=== PATIENT | female | born 2000 | race Caucasian/White ===

== ENCOUNTER 2024-01-23 15:41 | Emergency (ER) | payer OTHER, SELFPAY ==
[2024-01-23 15:49] VITALS: BP 120/73
[2024-01-23 16:17] LABS: % Basophils 0.2 % (0-2); % Eosinophils 0.2 % (0-6); % Immature Granulocytes 0.3 % (0-0.5); % Lymphocytes 16.6 % (20.5-51.1); % Monocytes 6.4 % (1.7-9.3); % Neutrophils 76.3 % (42.2-75.2); Absolute Lymphocytes 2.1 10^3/uL (1.2-3.4); Absolute Monocytes 0.8 10^3/uL (0.1-0.6); Absolute Neutrophils 9.8 10^3/uL (1.4-6.5); Hematocrit 34.9 % (37.0-47.0); Hemoglobin 12.4 g/dL (12.0-16.0); Mean Corp Hgb Conc. 35.5 g/dL (33.0-37.0); Mean Corpuscular Hgb 30.2 pg (27.0-31.0); Mean Corpuscular Volume 84.9 fL (81.0-99.0); Nucleated Red Blood Cells % 0 %; Platelet Count 171 10^3/uL (130-400); Red Blood Cell Count 4.11 10^6/uL (4.20-5.40); Red Cell Dist. Width 11.6 % (11.5-14.5); White Blood Cell Count 12.9 10^3/uL (4.8-10.8)
[2024-01-23 16:33] LABS: ALT (SGPT) 19 U/L (0-35); AST (SGOT) 24 U/L (14-36); Albumin 4.3 g/dl (3.5-5.0); Alkaline Phosphatase 34 U/L (38-126); Blood Urea Nitrogen 12 mg/dl (7-17); Calcium 9.3 mg/dl (8.4-10.2); Carbon Dioxide 21 mmol/L (22-30); Chloride 103 mmol/L (98-107); Glucose 87 mg/dl (70-99); Lipase 58 U/L (23-300); Sodium 132 mmol/L (135-145); Total Bilirubin 0.6 mg/dl (0.2-1.3); Total Protein 6.8 g/dl (6.3-8.2); eGFR > 60.00
--- NOTE | 2024-01-23 17:52 | ED.GENMED ---
History of Present Illness
General
Chief Complaint: Abdominal Pain
Source: patient
Exam Limitations: none
Time Seen by Provider: 01/23/24 17:13
Nursing documentation reviewed up to this point in time: agreed with
Travel History
Have you had any contact with someone who has COVID-19?: No
Do you have any symptoms of coronavirus? Fever > 100 degrees, chills, cough, shortness of breath, sore throat, loss of taste or smell, muscle aches, or headache?: No
History of Present Illness
History of Present Illness:
Patient is a 23-year-old female with a last menstrual period of November 30 who presents to the ER for evaluation. She reports she is approximately 8 weeks by dates and took self test at home. She has a first appoint with a new
MANAGER SERVICES on Friday. She has a history of chronic gastroparesis normally and has had vomiting with this however the past 1 week she has had increased vomiting. She is vomiting at least 70 times a day and is now vomiting water. She denies
any abdominal pain but does complain of low back pain/abd pain. She denies any vaginal bleeding.
Patient denies any frequency urgency dysuria denies any fever or chills.
Past History
Past History
ED Past Medical History: None
ED Past Surgical History: Other ([place] teeth)
Social History
Drug: None
Personal: Single
Living: with family
Phy Exam
General Physical Exam
General Presentation: no apparent distress
General age: appears stated age
General Skin: warm and dry
General Habitus: normal
General Mental: alert
General Hydration: appears well hydrated
Gastrointestinal Exam
Gastrointestinal Exam: non tender and soft
Neurological Exam
Neurological Exam: alert and oriented x3
Musculoskeletal Exam
Musculoskeletal Exam: full ROM
Skin Exam
Skin Exam: normal color and warm/dry
Psychiatric Exam
Psychiatric Exam: normal mood/affect
Course
Orders/Labs/Results
Orders:
Orders
01/23/24 16:01
Complete Blood Count/With Diff Urgent
Comprehensive Metabolic Panel Urgent
HCG,SERUM [Beta HCG Quantitative] Urgent
Is this a screen?: No
Lipase Urgent
01/23/24 17:22
0.9% Sodium Chloride 1000 ml [Nss] 1,000 ml IV BOLUS
01/23/24 17:57
Ondansetron Injectable [Zofran] 4 mg IV NOW STA
01/23/24 17:58
US 1st Trimester Urgent
Comment:
Reason For Exam: lower abd pain
01/23/24 18:05
UA Reflex to Culture [Urinalysis Reflex To Culture] Urgent
Date Specimen was Collected: 01/23/24
Time Specimen was Collected: 17:59
Urine Microscopic Reflex Cult Urgent
Urine Culture Urgent
LUANN Source: U
Specimen Description:
Date Specimen was Collected: 01/23/24
Time Specimen was Collected: 17:59
01/23/24 20:32
Cephalexin Monohydrate [Keflex] 250 mg PO NOW STA
01/23/24 20:37
Vital Signs- Treatment ONCE
Frequency: Once
Abnormal Lab Results
01/23/24 01/23/24
16:01 18:05
WBC 12.9 H 10^3/uL
(4.8-10.8)
RBC 4.11 L 10^6/uL
(4.20-5.40)
Hct 34.9 L %
(37.0-47.0)
MPV 13.0 H fL
(7.4-10.4)
Absolute Neuts (auto) 9.8 H 10^3/uL
(1.4-6.5)
Absolute Monos (auto) 0.8 H 10^3/uL
(0.1-0.6)
Neutrophils % 76.3 H %
(42.2-75.2)
Lymphocytes % 16.6 L %
(20.5-51.1)
Sodium 132 L mmol/L
(135-145)
Carbon Dioxide 21 L mmol/L
(22-30)
Creatinine 0.4 L mg/dL
(0.6-1.0)
Alkaline Phosphatase 34 L U/L
(38-126)
Urine Ketones Trace A
(Negative)
Ur Occult Blood Reflex Trace A
(Negative)
Leukocyte Esterase Rfl 2+ A
(Negative)
Urine WBC (Reflex) 30-40 A /HPF
(0-5)
Urine Bacteria (Reflex) Many A
(Negative)
01/23/24 16:01
01/23/24 16:01
Vital Signs
Initial and Last Documented VS:
Initial Vital Signs
Temp Pulse Resp BP Pulse Ox
98.4 F 93 20 120/73 99
01/23/24 15:49 01/23/24 15:49 01/23/24 15:49 01/23/24 15:49 01/23/24 15:49
Last Documented Vital Signs
Temp Pulse Resp BP Pulse Ox
98.4 F 93 20 120/73 99
01/23/24 15:49 01/23/24 15:49 01/23/24 15:49 01/23/24 15:49 01/23/24 15:49
Mini Lab Operator consulted with Physician
Name of Physician Consulted: robert
MDM/Problems Addressed
Differential Diagnosis Includes:
Not limited to hyperemesis gravidarum, dehydration, less likely , ectopic
MDM/Problems Addressed:
Patient is a 23-year-old female who reports she was approximately 8 weeks based on last menstrual period took a test and is scheduled to see NEWSPAPER MANAGER next week presents for nausea and vomiting. She has had nausea and vomiting since
but worse over the past week. She has not been able to keep anything down including water. She complained of mild low back pain and initially in triage complain of mild abdominal lower cramping but denied any vaginal bleeding. She
presents awake alert no acute distress. She denies any fevers and is afebrile white count minimally elevated this likely may be from . Patient though denies any UTI symptoms was found to have UTI with 30-40 white blood cells in urine 6�10
squamous +2 leuks. Patient received fluids here as well as nausea feeling much better drinking apple juice. Will treat with Keflex 250 mg every 6 hours for 7 days for UTI with close outpatient follow-up with test inspection engineer next week. Ultrasound
does show a single intrauterine measuring 7 weeks and 5 days heart rate 163 2 focal regions of subchorionic hemorrhage .
will also DC on Diclegis
*Critical Care Note
Total Time (30-74mins, 75-104mins- exclusive of procedures): Not Applicable
ED Attending Note
-
Portions of this chart may have been created with voice recognition software.� Occasional wrong word or��sound alike� substitutions may have occurred due to the inherent limitations of voice recognition software.
Discharge Plan
Departure
Patient Disposition: Home (Routine Discharge)
Date of Disposition: 01/23/24
Time of Disposition: 20:37
Patient with high blood pressure during this ER visit?: No
Condition: Fair
Covid-19: Not Applicable
Discharge Problem:
Nausea and vomiting during , UTI (urinary tract infection)
Instructions: Urinary Tract Infection, Adult (DC), Hyperemesis Gravidarum (DC)
Prescriptions:
New
cephalexin 250 mg capsule
250 mg PO Q6H Qty: 28 0RF
doxylamine-pyridoxine (vit B6) [Diclegis] 10-10 mg tablet,delayed release (DR/EC)
1 tab PO DAILY Qty: 10 0RF
Rx Instructions:
one tablet at night
No Action
amoxicillin 875 MG tablet
875 mg PO BID Qty: 14 0RF
ofloxacin 5 ML drops
5 ml LEFT EAR DAILY 7 Days Qty: 35 0RF
Referrals:
Robles Rizo MD [Family Provider] -
Activity Restrictions/Additional Instructions:
As discussed stay well-hydrated.
a prescription for Diclegis for nausea was sent to your pharmacy take as directed..
As discussed you do have a urinary tract infection. You were given the first dose of antibiotics here in the ER. A prescription was sent to your pharmacy take as directed for the next 7 days. Follow-up closely with your test inspection engineer on Friday.
Return if any worsening of symptoms including continued vomiting, if you are unable to tolerate oral fluids, abdominal pain vaginal bleeding or any further concerns.
Interventions
Interventions:
*Risk Screen - Suicide Last Done: 01/23/24 17:54
*General Assessment Last Done: 01/23/24 17:57
*Neglect/Abuse Screening Last Done: 01/23/24 17:54
ED- Fall Risk Assessment Last Done: 01/23/24 17:54
*ED COVID-19 Vaccine History Last Done: 01/23/24 17:57
KD-Ggsqxr-Qowzmsqplo Assessment Last Done: 01/23/24 17:05
[2024-01-23] MEDS: ZOFRAN 4 MG IV (18:01)
[2024-01-23] MEDS: NSS 1000 IV (18:02)
[2024-01-23 18:14] LABS: Urine Albumin Negative (Neg - Trace); Urine Bilirubin Negative (Negative); Urine Character Very Cloudy (Clear); Urine Color Yellow; Urine Glucose Negative (Negative); Urine Ketone Trace (Negative); Urine Leukocyte 2+ (Negative); Urine Nitrite Negative (Negative); Urine Occult Blood Trace (Negative); Urine Specific Gravity 1.025 (<1.030); Urine Urobilinogen 1+ (Neg - 1+)
[2024-01-23 18:32] LABS: Urine Red Blood Cell 0-2 /HPF (0-2)
[2024-01-23 18:33] LABS: Urine Bacteria Many (Negative); Urine White Cell 30-40 /HPF (0-5)
[2024-01-23 20:53] VITALS: BP 114/54
[2024-01-23] MEDS: KEFLEX 250 MG PO (20:57)
== END 2024-01-23 21:09 | disposition home or self-care (01) ==
LOC: EMR 15:41
PROVIDERS: Nurse Practitioner; EMERGENCY PHYSICIAN Emergency Medicine; FAMILY PHYSICIAN Internal Medicine
DX: O23.41 Unspecified infection of urinary tract in pregnancy, first trimester (principal); O21.9 Vomiting of pregnancy, unspecified; Z3A.01 Less than 8 weeks gestation of pregnancy
CPT/HCPCS: 99284; 96374; 96361; 76801; 80053; 81003; 81015; 83690; 84702; 85025; 87086

== ENCOUNTER 2024-02-28 08:17 | Emergency (ER) | payer OTHER, SELFPAY ==
[2024-02-28 08:25] VITALS: BP 122/78
--- NOTE | 2024-02-28 09:29 | ED.GENMED ---
History of Present Illness
General
Chief Complaint: Abdominal Symptoms
Source: patient
Exam Limitations: none
Time Seen by Provider: 02/28/24 09:18
Travel History
Have you had any contact with someone who has COVID-19?: No
Do you have any symptoms of coronavirus? Fever > 100 degrees, chills, cough, shortness of breath, sore throat, loss of taste or smell, muscle aches, or headache?: No
History of Present Illness
History of Present Illness:
23-year-old female with 2 complaints. Some blood in vomitus this morning and ongoing intermittent pelvic pain over the last week. She has a history of gastroparesis has been evaluated for this. She had a endoscopy done that showed some mild
gastritis and mild esophagitis. She is not currently on medications for this. She vomits on a daily basis and it was improving some prior to her . However the she has noted daily vomiting. She vomited at 2 AM that was not
unexpected or remarkable. When she vomited at 630 she noted a small amount of blood, possibly a dime size. She has had no recurrent vomiting. She has had no bloody or tarry stools. She has no chest pain or shortness of breath. In addition she
has had intermittent pelvic pain over the last week. Comes and goes mild in nature mostly midline. No flank or back pain no fever. No unusual vaginal bleeding. She is G1, P0. She did also have a recent UTI but is finished antibiotics for the
Past History
Past History
ED Past Medical History: Other (Gastroparesis)
ED Past Surgical History: Other ([place] teeth)
Social History
Drug: None
Personal: Single
Living: with family
Review of Systems
Review of Systems
All Other Systems: Not applicable
Constitutional: Denies fever
Respiratory: Reports no symptoms
Cardiac: Reports no symptoms
: Reports no symptoms
Phy Exam
Physical Exam
Physical Exam:
GENERAL: Alert and oriented in no apparent distress
EYE: Orbits normal.
NECK: Supple
ENT: Pharynx without erythema
CARDIAC: Regular rate and rhythm without any obvious murmurs.
LUNGS: Clear breath sounds,normal
ABDOMEN: Soft, no distention. No rebound or guarding no mass or hernia. Mild somewhat nonlocalizing midline pelvic tenderness with minimal extension to the right and left lower quadrant. No hernia or masses
NEUROLOGICAL: Alert and oriented , grossly non-focal
SKIN: Warm and dry, no rash or lesion, no discoloration, skin intact.
MUSCULOSKELETAL: No edema,no deformity.Good color
PSYCH: Normal and appropriate interaction.
Course
Orders/Labs/Results
Orders:
Orders
02/28/24 09:28
IV Insert/Care/Rem.- Treatment PRN
0.9% Sodium Chloride 1000 ml [Nss] 1,000 ml IV BOLUS
US Abdomen - Appendix Only Urgent
Comment:
Reason For Exam: Lower abdominal pain/
US 2nd/3rd Trimester Urgent
Comment:
Reason For Exam: Pelvic pain/13 weeks
02/28/24 09:34
Complete Blood Count/With Diff Urgent
Comprehensive Metabolic Panel Urgent
Lipase Urgent
02/28/24 11:20
Urinalysis Reflex To Culture Urgent
Date Specimen was Collected: 02/28/24
Time Specimen was Collected: 11:16
02/28/24 12:17
Famotidine [Pepcid] 20 mg PO NOW STA
Abnormal Lab Results
02/28/24 02/28/24
09:34 11:20
WBC 11.3 H 10^3/uL
(4.8-10.8)
RBC 4.04 L 10^6/uL
(4.20-5.40)
Hct 34.1 L %
(37.0-47.0)
MPV 12.2 H fL
(7.4-10.4)
Abs Immat Gran (auto) 0.1 H 10^3/uL
(0-0.05)
Absolute Neuts (auto) 9.1 H 10^3/uL
(1.4-6.5)
Absolute Monos (auto) 0.7 H 10^3/uL
(0.1-0.6)
Neutrophils % 80.8 H %
(42.2-75.2)
Lymphocytes % 12.0 L %
(20.5-51.1)
Sodium 131 L mmol/L
(135-145)
BUN 6 L mg/dl
(7-17)
Creatinine 0.4 L mg/dL
(0.6-1.0)
Urine Ketones 1+ A
(Negative)
02/28/24 09:34
02/28/24 09:34
Vital Signs
Initial and Last Documented VS:
Initial Vital Signs
Temp Pulse Resp BP Pulse Ox
98.3 F 100 20 122/78 100
02/28/24 08:25 02/28/24 08:25 02/28/24 08:25 02/28/24 08:25 02/28/24 08:25
Last Documented Vital Signs
Temp Pulse Resp BP Pulse Ox
98.3 F 75 16 135/62 96
02/28/24 08:25 02/28/24 11:52 02/28/24 11:52 02/28/24 11:52 02/28/24 11:52
MDM/Problems Addressed
Differential Diagnosis Includes:
Patient has 2 issues that I feel are likely unrelated. Intermittent mild pelvic pain. Likely secondary to the . For reassurance completeness we will do a repeat ultrasound. Doubt an acute surgical issue or appendicitis. However we will
check a white count and an appendix ultrasound. As for the vomiting this has been a recurring issue with a known diagnosis of gastroparesis. With the small amount of blood she may have a mild Emlia-May tear. Doubt significant as she is stable
and has had no recurring episodes. Will check a CBC give fluids and will talk to GI after workup is complete
*Radiology
Radiology exam reviewed: radiology read reviewed ([facility]. No acute findings. Nonvisualized appendix)
*Pulse Oximetry
Patient hypoxic: no
*Critical Care Note
Total Time (30-74mins, 75-104mins- exclusive of procedures): Not Applicable
Data Reviewed
Review of Other/Old Records Reveals: Labs, Records and Testing
Update Note
Update Note:
Patient very stable and nontoxic. No further episodes of vomiting or hematemesis. Discussed with GI. They preferred PPI but after discussion with OB prefer to start with Pepcid. I feel this is reasonable. No findings of acute pelvic issues.
Stable for discharge to follow-up
ED Attending Note
-
Portions of this chart may have been created with voice recognition software.� Occasional wrong word or��sound alike� substitutions may have occurred due to the inherent limitations of voice recognition software.
Discharge Plan
Departure
Patient Disposition: Home (Routine Discharge)
Date of Disposition: 02/28/24
Time of Disposition: 12:18
Patient with high blood pressure during this ER visit?: Yes
Discharge Problem:
Hematemesis/suspected Melia-May tear, , Pelvic pain
Prescriptions:
No Action
amoxicillin 875 MG tablet
875 mg PO BID Qty: 14 0RF
ofloxacin 5 ML drops
5 ml LEFT EAR DAILY 7 Days Qty: 35 0RF
cephalexin 250 mg capsule
250 mg PO Q6H Qty: 28 0RF
doxylamine-pyridoxine (vit B6) [Diclegis] 10-10 mg tablet,delayed release (DR/EC)
1 tab PO DAILY Qty: 10 0RF
Rx Instructions:
one tablet at night
Referrals:
Robles Rizo MD [Family Provider] -
Andreea Borges DO [Active] - Next open appointment
Activity Restrictions/Additional Instructions:
Take a Pepcid per day
Close follow-up with your primary physician and media arts professor. Call them first thing Friday morning for follow-up
Also follow-up with the balancing machine operator
Return sooner with recurrent or worsening vomiting or vomiting any further blood. Also return with chest pain shortness of breath increased abdominal pain fever etc.
Interventions
Interventions:
*Risk Screen - Suicide Last Done: 02/28/24 08:25
*General Assessment Last Done: 02/28/24 08:25
*Neglect/Abuse Screening Last Done: 02/28/24 08:25
ED- Fall Risk Assessment Last Done: 02/28/24 12:25
*ED COVID-19 Vaccine History Last Done: 02/28/24 12:25
*Nursing Disposition Last Done: 02/28/24 12:25
DA-Esljcp-Kysnazytyf Assessment Last Done: 02/28/24 12:25
Discharge Date and Time
Discharge Date/Time: 02/28/24 12:26
Print Language: HUNGARIAN
[2024-02-28 09:31] VITALS: BMI 18.1
[2024-02-28] MEDS: NSS 1000 IV (09:36)
[2024-02-28 09:47] LABS: % Basophils 0.2 % (0-2); % Eosinophils 0.2 % (0-6); % Immature Granulocytes 0.4 % (0-0.5); % Monocytes 6.4 % (1.7-9.3); % Neutrophils 80.8 % (42.2-75.2); Absolute Immature Granulocytes 0.1 10^3/uL (0-0.05); Absolute Lymphocytes 1.4 10^3/uL (1.2-3.4); Absolute Monocytes 0.7 10^3/uL (0.1-0.6); Absolute Neutrophils 9.1 10^3/uL (1.4-6.5); Hematocrit 34.1 % (37.0-47.0); Hemoglobin 12.3 g/dL (12.0-16.0); Mean Corp Hgb Conc. 36.1 g/dL (33.0-37.0); Mean Corpuscular Hgb 30.4 pg (27.0-31.0); Mean Corpuscular Volume 84.4 fL (81.0-99.0); Mean Platelet Volume 12.2 fL (7.4-10.4); Nucleated Red Blood Cells % 0 %; Platelet Count 159 10^3/uL (130-400); Red Blood Cell Count 4.04 10^6/uL (4.20-5.40); Red Cell Dist. Width 11.8 % (11.5-14.5); White Blood Cell Count 11.3 10^3/uL (4.8-10.8)
[2024-02-28 09:57] LABS: ALT (SGPT) 18 U/L (0-35); AST (SGOT) 18 U/L (14-36); Albumin 3.8 g/dl (3.5-5.0); Alkaline Phosphatase 45 U/L (38-126); Blood Urea Nitrogen 6 mg/dl (7-17); Calcium 9.4 mg/dl (8.4-10.2); Carbon Dioxide 24 mmol/L (22-30); Chloride 104 mmol/L (98-107); Estimated Creatinine Clearance 108 ml/min; Glucose 77 mg/dl (70-99); Lipase 39 U/L (23-300); Potassium 3.9 mmol/L (3.5-5.1); Sodium 131 mmol/L (135-145); Total Bilirubin 0.5 mg/dl (0.2-1.3); Total Protein 6.4 g/dl (6.3-8.2); eGFR > 60.00
[2024-02-28 11:37] LABS: Urine Albumin Negative (Neg - Trace); Urine Bilirubin Negative (Negative); Urine Character Clear (Clear); Urine Color Yellow; Urine Glucose Negative (Negative); Urine Ketone 1+ (Negative); Urine Leukocyte Negative (Negative); Urine Nitrite Negative (Negative); Urine Occult Blood Negative (Negative); Urine Urobilinogen Negative (Neg - 1+); Urine pH 6.5 (5.0-9.0)
[2024-02-28 11:52] VITALS: BP 135/62
[2024-02-28] MEDS: PEPCID 20 MG PO (12:23)
== END 2024-02-28 12:26 | disposition home or self-care (01) ==
LOC: EMR 08:17
PROVIDERS: EMERGENCY PHYSICIAN Emergency Medicine; FAMILY PHYSICIAN Internal Medicine
DX: O99.891 Other specified diseases and conditions complicating pregnancy (principal); K92.0 Hematemesis; R10.2 Pelvic and perineal pain
CPT/HCPCS: 99284; 96360; 76705; 76805; 80053; 81003; 83690; 85025

== ENCOUNTER 2024-04-01 20:55 | Emergency (ER) | payer OTHER, SELFPAY ==
[2024-04-01 20:56] VITALS: BP 124/77
[2024-04-01] MEDS: ZOFRAN 4 MG IV (22:08)
[2024-04-01] MEDS: D5/0.9% SODIUM CHLORIDE 1000 IV (22:09)
[2024-04-01 22:17] LABS: % Basophils 0.2 % (0-2); % Eosinophils 0.1 % (0-6); % Immature Granulocytes 0.4 % (0-0.5); % Lymphocytes 9.6 % (20.5-51.1); % Monocytes 3.9 % (1.7-9.3); % Neutrophils 85.8 % (42.2-75.2); Absolute Immature Granulocytes 0.1 10^3/uL (0-0.05); Absolute Lymphocytes 1.2 10^3/uL (1.2-3.4); Absolute Monocytes 0.5 10^3/uL (0.1-0.6); Absolute Neutrophils 11.1 10^3/uL (1.4-6.5); Hematocrit 29.6 % (37.0-47.0); Hemoglobin 11.1 g/dL (12.0-16.0); Mean Corp Hgb Conc. 37.5 g/dL (33.0-37.0); Mean Corpuscular Hgb 30.7 pg (27.0-31.0); Nucleated Red Blood Cells % 0 %; Platelet Count 180 10^3/uL (130-400); Red Blood Cell Count 3.61 10^6/uL (4.20-5.40); Red Cell Dist. Width 11.6 % (11.5-14.5)
[2024-04-01 22:43] LABS: ALT (SGPT) 23 U/L (0-35); AST (SGOT) 22 U/L (14-36); Albumin 3.8 g/dl (3.5-5.0); Alkaline Phosphatase 48 U/L (38-126); Blood Urea Nitrogen 9 mg/dl (7-17); Calcium 9.8 mg/dl (8.4-10.2); Carbon Dioxide 22 mmol/L (22-30); Chloride 104 mmol/L (98-107); Glucose 90 mg/dl (70-99); Potassium 3.8 mmol/L (3.5-5.1); Sodium 134 mmol/L (135-145); Total Bilirubin 0.6 mg/dl (0.2-1.3); Total Protein 6.5 g/dl (6.3-8.2); eGFR > 60.00
[2024-04-01 22:44] LABS: Lipase 50 U/L (23-300)
--- NOTE | 2024-04-01 22:58 | ED.GENMED ---
History of Present Illness
General
Chief Complaint: Abdominal Symptoms
Source: patient and spouse
Exam Limitations: none
Time Seen by Provider: 04/01/24 21:15
Nursing documentation reviewed up to this point in time: agreed with
Travel History
Have you had any contact with someone who has COVID-19?: No
Do you have any symptoms of coronavirus? Fever > 100 degrees, chills, cough, shortness of breath, sore throat, loss of taste or smell, muscle aches, or headache?: No
History of Present Illness
History of Present Illness:
24-year-old female currently G1, P0 also history of gastroparesis presenting to the emergency department today with concerns of nausea and vomiting over the past 2 days has had some persisting vomiting over the past few weeks currently is
17 weeks . Has been taking Unisom at home without relief. Denies any chest pain shortness of breath no vaginal no pelvic pain. No urinary symptoms.
Past History
Past History
ED Past Medical History: Other (Gastroparesis)
ED Past Surgical History: Other ([place] teeth)
Social History
Drug: None
Personal: Single
Living: with family
Review of Systems
Review of Systems
Allergies reviewed?: Yes
All Other Systems: ROS reviewed and negative except as documented in HPI and ROS
Phy Exam
Physical Exam
Physical Exam:
GENERAL: Alert , in no apparent distress
EYE: pupils equal and reactive
NECK: Supple, no significant adenopathy.
ENT: o/p clr, mmm.
CARDIAC: Regular rate and rhythm .
LUNGS: Clear breath sounds bilaterally, no acute respiratory distress, no wheezes/rales/rhonchi
ABDOMEN: Gravid abdomen, heart tones of 162
NEUROLOGICAL: Alert and oriented, no focal neuro deficits
SKIN: Warm and dry, skin intact.
MUSCULOSKELETAL: No edema, well perfused.
PSYCH: Normal and appropriate interaction.
Course
Orders/Labs/Results
Orders:
Orders
04/01/24 21:35
Urinalysis Reflex To Culture Urgent
Date Specimen was Collected: 04/02/24
Time Specimen was Collected: 00:07
Ondansetron Injectable [Zofran] 4 mg IV NOW STA
04/01/24 21:36
Dextrose 5%/0.9%Sodchl 1000 ml [D5/0.9% Sodium Chloride] 1,000 ml IV 1,000 mls/hr
04/01/24 21:45
Heart Tones ONCE
04/01/24 22:12
Complete Blood Count/With Diff Urgent
Comprehensive Metabolic Panel Urgent
Lipase Urgent
04/01/24 23:36
Metoclopramide [Reglan] 10 mg IV NOW STA
04/02/24 00:23
0.9% Sodium Chloride 1000 ml [Nss] 1,000 ml IV BOLUS
Ondansetron Injectable [Zofran] 4 mg IV NOW STA
Abnormal Lab Results
04/01/24 04/02/24
22:12 00:08
WBC 13.0 H 10^3/uL
(4.8-10.8)
RBC 3.61 L 10^6/uL
(4.20-5.40)
Hgb 11.1 L g/dL
(12.0-16.0)
Hct 29.6 L %
(37.0-47.0)
MCHC 37.5 H g/dL
(33.0-37.0)
MPV 12.0 H fL
(7.4-10.4)
Abs Immat Gran (auto) 0.1 H 10^3/uL
(0-0.05)
Absolute Neuts (auto) 11.1 H 10^3/uL
(1.4-6.5)
Neutrophils % 85.8 H %
(42.2-75.2)
Lymphocytes % 9.6 L %
(20.5-51.1)
Sodium 134 L mmol/L
(135-145)
Creatinine 0.4 L mg/dL
(0.6-1.0)
Urine Ketones 3+ A
(Negative)
Urine Glucose 3+ A
(Negative)
04/01/24 22:12
04/01/24 22:12
Vital Signs
Initial and Last Documented VS:
Initial Vital Signs
Temp Pulse BP Pulse Ox
97.9 F 102 124/77 97
04/01/24 20:56 04/01/24 20:56 04/01/24 20:56 04/01/24 20:56
Last Documented Vital Signs
Temp Pulse BP Pulse Ox
97.9 F 102 124/77 97
04/01/24 20:56 04/01/24 20:56 04/01/24 20:56 04/01/24 20:56
MDM/Problems Addressed
MDM/Problems Addressed:
24-year-old female currently 17 weeks with her first with concerns of ongoing nausea and vomiting that has been going on for weeks has been taking Unisom at home without relief. Upon arrival here patient mildly tachycardic at 102
otherwise vital signs are normal. Labs showing slight white count. Patient also mildly anemic. Other labs unremarkable. Patient was given Zofran as well as fluids. Patient had improvement of symptoms requesting to go home stable for discharge
return precautions given.
*Critical Care Note
Total Time (30-74mins, 75-104mins- exclusive of procedures): Not Applicable
ED Attending Note
-
Portions of this chart may have been created with voice recognition software.� Occasional wrong word or��sound alike� substitutions may have occurred due to the inherent limitations of voice recognition software.
Discharge Plan
Departure
Patient Disposition: Home (Routine Discharge)
Date of Disposition: 04/02/24
Time of Disposition: 00:33
Patient with high blood pressure during this ER visit?: No
Condition: Good
Covid-19: Not Applicable
Discharge Problem:
Vomiting during
Instructions: Hyperemesis Gravidarum (DC)
Prescriptions:
No Action
amoxicillin 875 MG tablet
875 mg PO BID Qty: 14 0RF
ofloxacin 5 ML drops
5 ml LEFT EAR DAILY 7 Days Qty: 35 0RF
cephalexin 250 mg capsule
250 mg PO Q6H Qty: 28 0RF
doxylamine-pyridoxine (vit B6) [Diclegis] 10-10 mg tablet,delayed release (DR/EC)
1 tab PO DAILY Qty: 10 0RF
Rx Instructions:
one tablet at night
Referrals:
Robles Rizo MD [Family Provider] -
Activity Restrictions/Additional Instructions:
You came to the emergency department today with concerns of ongoing vomiting. Here you had reassuring labs and some improvement with the medications. Please take the Medications prescribed at home. Return to the emergency department for any
worsening, new or concerning symptoms. otherwise please follow-up closely with your family services worker.
Interventions
Interventions:
*Risk Screen - Suicide Last Done: 04/01/24 21:04
*General Assessment Last Done: 04/01/24 21:04
*ED COVID-19 Vaccine History Last Done: 04/01/24 21:03
LC-Mcfirt-Tqaznqazmt Assessment Last Done: 04/01/24 22:00
Discharge Date and Time
Print Language: TELUGU
[2024-04-01 23:15] VITALS: BP 120/88
[2024-04-02] MEDS: REGLAN 10 MG IV (00:07)
[2024-04-02 00:17] LABS: Urine Albumin Negative (Neg - Trace); Urine Bilirubin Negative (Negative); Urine Character Clear (Clear); Urine Color Yellow; Urine Glucose 3+ (Negative); Urine Ketone 3+ (Negative); Urine Leukocyte Negative (Negative); Urine Nitrite Negative (Negative); Urine Occult Blood Negative (Negative); Urine Specific Gravity 1.015 (<1.030); Urine Urobilinogen Negative (Neg - 1+); Urine pH 6.5 (5.0-9.0)
== END 2024-04-02 00:45 | disposition home or self-care (01) ==
LOC: EMR 20:55
PROVIDERS: Physician Assistant; EMERGENCY PHYSICIAN Emergency Medicine; FAMILY PHYSICIAN Internal Medicine
DX: O21.9 Vomiting of pregnancy, unspecified (principal); O99.012 Anemia complicating pregnancy, second trimester; Z3A.17 17 weeks gestation of pregnancy; K31.84 Gastroparesis
CPT/HCPCS: 99283; 96374; 96375; 96361; 80053; 81003; 83690; 85025

== ENCOUNTER 2025-08-22 19:39 | Emergency (ER) | payer OTHER, SELFPAY ==
[2025-08-22 19:46] VITALS: BP 135/79
[2025-08-22 20:42] LABS: Hematocrit 41.3 % (37.0-47.0); Hemoglobin 13.7 g/dL (12.0-16.0); Mean Corp Hgb Conc. 33.2 g/dL (33.0-37.0); Mean Corpuscular Volume 84.3 fL (81.0-99.0); Nucleated Red Blood Cells % 0 %; Platelet Count 228 10^3/uL (130-400); Red Cell Dist. Width 12.4 % (11.5-14.5)
[2025-08-22 20:43] LABS: HCG, Serum Qualitative Screen Negative
[2025-08-22 20:50] LABS: ALT (SGPT) 17 U/L (0-35); AST (SGOT) 19 U/L (14-36); Albumin 5.0 g/dl (3.5-5.0); Alkaline Phosphatase 46 U/L (38-126); Blood Urea Nitrogen 12 mg/dl (7-17); Calcium 9.7 mg/dl (8.4-10.2); Carbon Dioxide 27 mmol/L (22-30); Chloride 102 mmol/L (98-107); Glucose 114 mg/dl (70-99); Potassium 3.7 mmol/L (3.5-5.1); Sodium 140 mmol/L (135-145); Total Protein 7.6 g/dl (6.3-8.2); eGFR > 60.00
[2025-08-22] MEDS: TORADOL 15 MG IV (22:37)
[2025-08-22] MEDS: NSS 1000 IV (22:39)
[2025-08-22 22:42] VITALS: BP 115/70; BMI 19.9
--- NOTE | 2025-08-22 22:47 | ED.GENMED ---
History of Present Illness
General
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
Source: patient and previous radiology exam (Unremarkable pelvic ultrasound March 2023 with complaints of right lower quadrant pain. ultrasound March 2024 showing single live IUP at 13 weeks 5 days. Unremarkable left ovary. Right ovary not
visualized. Ultrasound performed due to lower abdominal pain.)
Exam Limitations: none
Time Seen by Provider: 08/22/25 22:07
Nursing documentation reviewed up to this point in time: agreed with
History of Present Illness
History of Present Illness:
The patient is a 25-year-old female who presents with right lower abdominal pain, localized more towards the groin area, persisting for about a week. The patient mentions that this pain intensifies during coughing, walking, and upon palpation. She
has an intrauterine device (IUD) placed in December, and this pain is the first significant occurrence since its placement. The patient reports that her last menstrual period was a week ago, and the pain started around that time. She describes no
dysuria but experiences discomfort in the groin region during urination. There is no history of fever or constipation, but some discomfort is noted on the right side of her back. Additionally, she reports nausea, which has worsened over the past
week, affecting her appetite. She denies any lumps or masses in the abdominal area. The patient has been taking acetaminophen for pain relief. She also finds relief with local ice.
She denies injury. Prior to a week ago, no history of similar episodes of pain. She does note nausea without vomiting. She has history of gastroparesis with chronic nausea and history of chronic abdominal pain. Follows with GI.
No prior history of UTIs, pyelonephritis, no history of STDs.
She follows with [facility].
Past History
Past History
ED Past Medical History: Psychiatric and Other (Gastroparesis)
ED Past Surgical History: Other (Dowling teeth)
Social History
Tobacco: Non-smoker
Alcohol: None
Drug: None
Personal: Single
Living: with family
Family History
Family History: Other (Noncontributory)
Phy Exam
Physical Exam
Physical Exam:
GENERAL: 25-year-old female, thin build, appears her stated age. She is bright and alert, pleasant, appears in no acute distress. Easily communicative. Significant other is accompanying her.
EYE: anicteric
NECK: Supple, nontender, no meningismus, no significant adenopathy.
ENT: oral mucosa is moist. No rhinorrhea.
CARDIAC: Regular rate and rhythm. no murmur.
LUNGS: Clear breath sounds bilaterally, no acute respiratory distress, no wheezes/rales/rhonchi
ABDOMEN: Soft, nondistended, moderate tenderness distal right lower quadrant as well as very mild tenderness right inguinal region, no r/g, minimal right CVA tenderness with percussion. Normoactive BS. There is no palpable masses. No inguinal
adenopathy. No rash.
NEUROLOGICAL: Alert and oriented x3, no focal neuro deficits. Gait is steady.
SKIN: Warm and dry, normal color, skin intact. No rash.
MUSCULOSKELETAL: No C/C/E. peripheral pulses are full and equal b/l. No palpable tenderness.
PSYCH: Normal and appropriate interaction.
Course
Orders/Labs/Results
Orders:
Orders
08/22/25 19:52
Test Result ONCE
08/22/25 20:00
C-Reactive Protein Urgent
Comment: ADD ON
Complete Blood Count/With Diff Urgent
Comprehensive Metabolic Panel Urgent
Erythrocyte Sed Rate Urgent
Comment: ADD ON
HCG, Serum Qualitative Screen Urgent
08/22/25 22:11
Add On- LAB Urgent
Tests Added?: CRP, sed rate
08/22/25 22:24
0.9% Sodium Chloride 1000 ml [Nss] 1,000 ml IV BOLUS
Ketorolac [Toradol] 15 mg IV NOW STA
Renal & Bladder US [US Renal With Bladder] Urgent
Comment:
Reason For Exam: RLQ pain rad to R flank x 1 week
US Abdomen - Appendix Only Urgent
Comment:
Reason For Exam: RLQ pain x 1 week
US Pelvis W Transvag Combined Urgent
Comment:
Reason For Exam: RLQ, R pelvic pain x 1 week
08/23/25 00:18
CT Abd/pelvis W Iv Cont Urgent
Comment:
Reason For Exam: RLQ, R back pain, mild R hydro on US
08/23/25 00:47
Urinalysis Reflex To Culture Urgent
Date Specimen was Collected: 08/23/25
Time Specimen was Collected: 00:45
Urine Microscopic Reflex Cult Urgent
Urine Culture Urgent
LUANN Source: U
Specimen Description:
Date Specimen was Collected: 08/23/25
Time Specimen was Collected: 00:45
Abnormal Lab Results
08/22/25 08/23/25
20:00 00:47
MPV 12.5 H fL
(7.4-10.4)
Absolute Monos (auto) 0.8 H 10^3/uL
(0.1-0.6)
Glucose 114 H mg/dl
(70-99)
Urine Ketones 2+ A
(Negative)
Ur Occult Blood Reflex 1+ A
(Negative)
Leukocyte Esterase Rfl 1+ A
(Negative)
Urine WBC (Reflex) 11-15 A /HPF
(0-5)
Urine Albumin (Reflex) 1+ A
(Neg - Trace)
08/22/25 20:00
08/22/25 20:00
Vital Signs
Initial and Last Documented VS:
Initial Vital Signs
Temp Pulse Resp BP Pulse Ox
97.6 F 78 16 135/79 100
08/22/25 19:46 08/22/25 19:46 08/22/25 19:46 08/22/25 19:46 08/22/25 19:46
Last Documented Vital Signs
Temp Pulse Resp BP Pulse Ox
97.6 F 78 16 128/76 100
08/22/25 19:46 08/22/25 19:46 08/22/25 19:46 08/22/25 23:19 08/22/25 22:57
MDM/Problems Addressed
Differential Diagnosis Includes:
The Differential Diagnosis includes, in no particular order and is not limited to:
1. Urinary Tract Infection
2. Ovarian Cyst, ovarian torsion
3. Pelvic Inflammatory Disease
4. Appendicitis
5. Endometriosis
6. Ectopic
7. Gastrointestinal Disorder
8. Musculoskeletal Strain
9. Hernia
10. Interstitial Cystitis
11. Ureteral stone
MDM/Problems Addressed:
Acute right lower quadrant/right pelvic/right groin pain x 1 week.
Overall well in appearance. Afebrile with no reported recent fever.
Labs thus far are unremarkable, within normal limits.
With ongoing pain for 1 week, afebrile, unremarkable laboratory studies, acute appendicitis is doubtful.
No prior history of PID and again with lack of fever especially with symptoms ongoing for the past week, PID is unlikely as well.
Will add sed rate and CRP to blood in the lab.
Will plan for pelvic ultrasound, renal ultrasound as well as ultrasound for appendicitis.
Will eventually plan on checking urinalysis but first we will plan to fill bladder in preparation for pelvic ultrasound.
Will medicate for pain with an IV dose of Toradol.
Chronic conditions affecting care:
Gastroparesis
*Radiology
Radiology exam reviewed: radiology read reviewed
*Pulse Oximetry
SaO2: 100
Oxygen Mode of Delivery: Room air
Patient hypoxic: no
*Critical Care Note
Total Time (30-74mins, 75-104mins- exclusive of procedures): Not Applicable
Update Note
Update Note:
Patient reports mild to moderate improvement in pain after an IV dose of Toradol.
Ultrasound show small simple cyst left ovary otherwise bilateral ovaries normal size and shape. Normal flow to bilateral ovaries. IUD in place. Small to moderate amount of pelvic free fluid. Appendix not visualized. Renal ultrasound shows a
very mild pelvic fullness on the right. No evidence of intrarenal stones.
Due to right lower quadrant pain, right low back pain and ultrasound concerning for mild hydronephrosis on the right, must consider ureteric stone on the right. Could also consider UTI.
Urinalysis is pending.
Will check CT abdomen and pelvis.
Pelvic free fluid could be related to recent cyst rupture. She remains afebrile. Inflammatory markers are negative. Nothing to suggest infectious process.
01:50
CT abdomen pelvis is unremarkable.
Urinalysis is a contaminated specimen. Other than this no evidence of UTI and she continues to have no UTI symptoms.
At this point, unclear as to exact cause of right lower quadrant/right groin pain but workup thus far is unremarkable/reassuring. She may have suffered a right ovarian cyst rupture, and if so, pelvic free fluid should resolve within the next
several days with resolution of pain over the next several days.
Right lower quadrant/right inguinal pain may be musculoskeletal in nature.
Recommend she continue with ice versus heat. Will add low-dose diclofenac for as needed pain.
Discussed importance of prompt follow-up with her PCP versus [facility].
ED Attending Note
-
Portions of this chart may have been created with voice recognition software.� Occasional wrong word or��sound alike� substitutions may have occurred due to the inherent limitations of voice recognition software.
Discharge Plan
Departure
Patient Disposition: Home (Routine Discharge)
Date of Disposition: 08/23/25
Time of Disposition: 01:51
Patient with high blood pressure during this ER visit?: No
Condition: Good
Discharge Problem:
Abdominal pain, acute, right lower quadrant
Instructions: Abdominal Pain
Prescriptions:
New
diclofenac sodium 25 mg tablet,delayed release (DR/EC)
25 mg PO BID PRN (Reason: Pain) Qty: 20 0RF
Discontinued
amoxicillin 875 MG tablet
875 mg PO BID Qty: 14 0RF
ofloxacin 5 ML drops
5 ml LEFT EAR DAILY 7 Days Qty: 35 0RF
cephalexin 250 mg capsule
250 mg PO Q6H Qty: 28 0RF
doxylamine-pyridoxine (vit B6) [Diclegis] 10-10 mg tablet,delayed release (DR/EC)
1 tab PO DAILY Qty: 10 0RF
Rx Instructions:
one tablet at night
Referrals:
Robles Rizo MD [Family Provider, Internal Medicine] - Call in 1-3 days for appt
Interventions
Interventions:
*Risk Screen - Suicide Last Done: 08/22/25 19:46
*General Assessment Last Done: 08/22/25 19:46
*Neglect/Abuse Screening Last Done: 08/22/25 19:46
*ED- Fall Risk Assessment Last Done: 08/22/25 19:46
*ED COVID-19 Vaccine History Last Done: 08/22/25 19:46
*ED Influenza Vaccine History Last Done: 08/22/25 19:46
ED-Female Genitourinary Assessment Last Done: 08/22/25 21:36
Discharge Date and Time
Print Language: WALLISIAN
[2025-08-22 23:07] LABS: C-Reactive Protein < 5.00 mg/L (0.0-10.00)
[2025-08-22 23:19] VITALS: BP 128/76
[2025-08-23 01:05] LABS: Urine Character Clear (Clear)
[2025-08-23 01:38] LABS: Urine Squamous Cell >30 /LPF (Few)
[2025-08-23 01:40] LABS: Urine Red Blood Cell 0-2 /HPF (0-2)
[2025-08-23 02:00] VITALS: BP 111/65
== END 2025-08-23 02:33 | disposition home or self-care (01) ==
LOC: EMR 19:39
PROVIDERS: Emergency Medicine; EMERGENCY PHYSICIAN Emergency Medicine; FAMILY PHYSICIAN Internal Medicine
DX: R10.31 Right lower quadrant pain (principal); N83.292 Other ovarian cyst, left side; K31.84 Gastroparesis
CPT/HCPCS: 99284; 96374; 96361 ×3; 74177; 76705; 76770; 76830; 76856; 80053; 81003; 81015; 84703; 85025; 85652; 86140; 87086; Q9967